=== PATIENT | male | born 1945 | race Caucasian/White ===

== ENCOUNTER 2017-11-03 09:26 | Emergency (ER) | payer MEDICARE, OTHER ==
[~2017-11-03] VITALS: Ht 182.9 cm; Wt 94.3 kg
[~2017-11-03 09:26] MED LIST: ALBU90OI61 INH; BUPR150ER; CITA20; HYDR1TAB94; LISI20 PO; LISI5; METO100ER; NAPR500EC; Norco 5-325 Ta1 EACH PO; OXYACE5T PO; Prednisone20 MG PO; TRIHYD253A; Tamiflu75 MG PO
[2017-11-03 10:21] LABS: BASOPHILS ABSOLUTE AUTO 0.07 K/mm3 (0.00-0.23); BASOPHILS PERCENT AUTO 1 % (0-2); EOSINOPHILS ABSOLUTE AUTO 0.14 K/mm3 (0.00-0.68); EOSINOPHILS PERCENT AUTO 2 % (0-6); Hematocrit 44.7 % (37.0-53.0); IMMATURE GRAN ABSOLUTE AUTO 0.13 K/mm3 (0.00-0.10); IMMATURE GRAN PERCENT AUTO 2 % (0-1); LYMPHOCYTES ABSOLUTE AUTO 2.51 K/mm3 (0.84-5.20); LYMPHOCYTES PERCENT AUTO 32 % (21-46); MONOCYTES ABSOLUTE AUTO 0.82 K/mm3 (0.16-1.47); MONOCYTES PERCENT AUTO 10 % (4-13); Mean Corpuscular HGB 30.5 pg (26.0-34.0); Mean Corpuscular HGB Conc 33.6 g/dL (31.5-36.5); Mean Corpuscular Volume 91 fL (80-100); Mean Platelet Volume 10.8 fL (9.1-12.4); NEUTROPHILS ABSOLUTE AUTO 4.29 K/mm3 (1.96-9.15); NEUTROPHILS PERCENT AUTO 54 % (41-73); Platelet Count 204 K/mm3 (150-400); RDW Coefficient Variation 12.7 % (11.7-14.2); RDW Standard Deviation 42.3 fL (35.1-46.3); Red Blood Cell Count 4.91 M/mm3 (4.30-5.90); White Blood Cell Count 7.96 K/mm3 (4.00-11.30)
[2017-11-03] MEDS ORDERED: POTCHL10ER PO (10:45)
[2017-11-03] MEDS ORDERED: FURO40 PO (10:46)
[2017-11-03] MEDS ORDERED: LISI20 PO (10:46)
[2017-11-03] MEDS ORDERED: CITA20 PO (10:47)
[2017-11-03] MEDS ORDERED: Percocet 5-3251 EACH PO (10:47)
[2017-11-03 10:48] LABS: Alanine Aminotransfer (ALT/SGP 19 U/L (12-78); Albumin, Blood 3.2 g/dL (3.4-5.0); Albumin/Globulin Ratio 0.8 (0.8-1.8); Alk Phos 121 U/L (50-136); Anion Gap 8 mmol/L (6-16); Aspartate Aminotrans (AST/SGOT 14 U/L (12-37); Bilirubin, Total 0.3 mg/dL (0.1-1.0); Blood Urea Nitrogen 21 mg/dL (8-24); Bun/Creatinine Ratio 17.1 (12.0-20.0); CO2, Blood 26 mmol/L (21-32); Calcium, Blood 8.5 mg/dL (8.5-10.1); Chloride, Blood 105 mmol/L (98-108); Creatinine, Blood 1.23 mg/dL (0.60-1.20); Globulin, Blood 4.2 g/dL (2.2-4.0); Glomerular Filtration Rate >60 (60-); Glucose, Blood 89 mg/dL (70-99); Potassium, Blood 4.1 mmol/L (3.5-5.5); Sodium, Blood 139 mmol/L (136-145); Total Protein, Blood 7.4 g/dL (6.4-8.2); Troponin I <0.015 ng/mL (0.000-0.040)
[2017-11-03] MEDS ORDERED: Bupropion Xl150 MG PO (10:49)
[2017-11-03] MEDS ORDERED: Norco 5-325 Ta1 EACH PO (12:45)
[2018-01-13] MEDS ORDERED: FENTANYL1 EAC1 TOP (10:26)
== END 2017-11-03 13:15 | disposition home or self-care (01) ==
LOC: ER 09:26
PROVIDERS: Internal Medicine
DX: R07.89 Other chest pain (principal); R91.8 Other nonspecific abnormal finding of lung field; Z79.891 Long term (current) use of opiate analgesic; I10 Essential (primary) hypertension; J44.9 Chronic obstructive pulmonary disease, unspecified; E78.5 Hyperlipidemia, unspecified; F17.200 Nicotine dependence, unspecified, uncomplicated
CPT/HCPCS: 36415; 71046; 71260; 80053; 83880; 84484; 85025; 85379; 93005; 93010; 99284; Q9967

== ENCOUNTER 2017-11-24 08:55 | Day surgery (SDC) | payer MEDICARE, OTHER ==
[~2017-11-24 08:55] MED LIST changes: +Bupropion Xl150 MG PO; +CITA20 PO; +FURO40 PO; +POTCHL10ER PO; +Percocet 5-3251 EACH PO
[2017-11-25] MEDS ORDERED: Hydrocodone-Ap1 EA23 (11:58)
[2017-11-25] MEDS ORDERED: HYDMOR2 PO (14:10)
[2017-12-07 14:32] LABS: Performing Lab SYMBIODX; Test Name TISSUE BLOCK
[2017-12-15 11:18] LABS: Result SEE PATHOTH RESULTS
[2018-01-13] MEDS ORDERED: FENTANYL1 EAC1 TOP (10:26)
== END 2017-11-24 22:54 | disposition home or self-care (01) ==
LOC: CT 08:55
PROVIDERS: Physician Assistant; Radiology Diagnostic Radiology
PROC: 0BBC3ZX Excision of Right Upper Lung Lobe, Percutaneous Approach, Diagnostic (ICD-10-PCS; principal; 2017-11-24 11:00)
DX: C34.11 Malignant neoplasm of upper lobe, right bronchus or lung (principal); F17.210 Nicotine dependence, cigarettes, uncomplicated
CPT/HCPCS: 32405; 71045; 77012; 88305; 88342; 88360

== ENCOUNTER 2017-11-25 11:34 | Emergency (ER) | payer MEDICARE, OTHER ==
[~2017-11-25] VITALS: Ht 177.8 cm; Wt 86.2 kg
[2017-11-25] MEDS ORDERED: Hydrocodone-Ap1 EA23 (11:58)
[2017-11-25 12:00] LABS: BASOPHILS ABSOLUTE AUTO 0.05 K/mm3 (0.00-0.23); BASOPHILS PERCENT AUTO 1 % (0-2); EOSINOPHILS ABSOLUTE AUTO 0.14 K/mm3 (0.00-0.68); EOSINOPHILS PERCENT AUTO 2 % (0-6); Hematocrit 41.5 % (37.0-53.0); Hemoglobin 13.8 g/dL (13.5-17.5); IMMATURE GRAN ABSOLUTE AUTO 0.05 K/mm3 (0.00-0.10); IMMATURE GRAN PERCENT AUTO 1 % (0-1); LYMPHOCYTES ABSOLUTE AUTO 1.98 K/mm3 (0.84-5.20); LYMPHOCYTES PERCENT AUTO 26 % (21-46); MONOCYTES ABSOLUTE AUTO 0.67 K/mm3 (0.16-1.47); MONOCYTES PERCENT AUTO 9 % (4-13); Mean Corpuscular HGB 30.1 pg (26.0-34.0); Mean Corpuscular HGB Conc 33.3 g/dL (31.5-36.5); Mean Corpuscular Volume 90 fL (80-100); Mean Platelet Volume 10.1 fL (9.1-12.4); NEUTROPHILS PERCENT AUTO 62 % (41-73); Platelet Count 247 K/mm3 (150-400); RDW Coefficient Variation 12.2 % (11.7-14.2); RDW Standard Deviation 40.4 fL (35.1-46.3); Red Blood Cell Count 4.59 M/mm3 (4.30-5.90); White Blood Cell Count 7.69 K/mm3 (4.00-11.30)
[2017-11-25 12:18] LABS: Alanine Aminotransfer (ALT/SGP 21 U/L (12-78); Albumin, Blood 2.9 g/dL (3.4-5.0); Albumin/Globulin Ratio 0.6 (0.8-1.8); Alk Phos 117 U/L (50-136); Anion Gap 7 mmol/L (6-16); Aspartate Aminotrans (AST/SGOT 18 U/L (12-37); Bilirubin, Total 0.6 mg/dL (0.1-1.0); Blood Urea Nitrogen 19 mg/dL (8-24); Bun/Creatinine Ratio 17.9 (12.0-20.0); CO2, Blood 27 mmol/L (21-32); Calcium, Blood 8.8 mg/dL (8.5-10.1); Chloride, Blood 102 mmol/L (98-108); Creatinine, Blood 1.06 mg/dL (0.60-1.20); Globulin, Blood 4.7 g/dL (2.2-4.0); Glomerular Filtration Rate >60 (60-); Glucose, Blood 131 mg/dL (70-99); Potassium, Blood 3.8 mmol/L (3.5-5.5); Sodium, Blood 136 mmol/L (136-145); Total Protein, Blood 7.6 g/dL (6.4-8.2)
[2017-11-25] MEDS ORDERED: HYDMOR2 PO (14:10)
[2018-01-13] MEDS ORDERED: FENTANYL1 EAC1 TOP (10:26)
== END 2017-11-25 14:39 | disposition home or self-care (01) ==
LOC: ER 11:34
PROVIDERS: Emergency Medicine
DX: R07.9 Chest pain, unspecified (principal); R06.02 Shortness of breath; F17.200 Nicotine dependence, unspecified, uncomplicated; I10 Essential (primary) hypertension; J44.9 Chronic obstructive pulmonary disease, unspecified; E78.5 Hyperlipidemia, unspecified; Z79.899 Other long term (current) drug therapy
CPT/HCPCS: 36415; 71046; 80053; 85025; 93005; 93010; 96374; 99283; J1170

== ENCOUNTER 2017-11-28 10:42 | Emergency (ER) | payer MEDICARE, OTHER ==
[~2017-11-28] VITALS: Ht 175.3 cm; Wt 92.1 kg
[~2017-11-28 10:42] MED LIST changes: +HYDMOR2 PO; +Hydrocodone-Ap1 EA23
[2017-11-28] MEDS ORDERED: Norco 10-325 T1 EACH PO (12:25)
[2018-01-13] MEDS ORDERED: FENTANYL1 EAC1 TOP (10:26)
== END 2017-11-28 13:40 | disposition home or self-care (01) ==
LOC: ER 10:42
DX: G89.4 Chronic pain syndrome (principal); C34.90 Malignant neoplasm of unspecified part of unspecified bronchus or lung; I10 Essential (primary) hypertension; J44.9 Chronic obstructive pulmonary disease, unspecified; E78.5 Hyperlipidemia, unspecified; Z79.899 Other long term (current) drug therapy; Z87.891 Personal history of nicotine dependence
CPT/HCPCS: 71046; 96372; 99284; J1170; J2550

== ENCOUNTER 2017-12-05 20:55 | Emergency (ER) | payer MEDICARE, OTHER ==
[~2017-12-05] VITALS: Ht 175.3 cm; Wt 89.8 kg
[~2017-12-05 20:55] MED LIST changes: +Norco 10-325 T1 EACH PO
[2017-12-05] MEDS ORDERED: CHOL10002 PO (21:44)
[2017-12-05] MEDS ORDERED: CYCL10 PO (21:46)
[2017-12-05] MEDS ORDERED: Cyclobenzaprine5 MG PO (22:08)
[2018-01-13] MEDS ORDERED: FENTANYL1 EAC1 TOP (10:26)
== END 2017-12-05 22:30 | disposition home or self-care (01) ==
LOC: ER 20:55
DX: G89.29 Other chronic pain (principal); M25.512 Pain in left shoulder; Z76.0 Encounter for issue of repeat prescription; I10 Essential (primary) hypertension; J44.9 Chronic obstructive pulmonary disease, unspecified; E78.5 Hyperlipidemia, unspecified; Z87.891 Personal history of nicotine dependence; Z79.899 Other long term (current) drug therapy
CPT/HCPCS: 71046; 76870; 96372; 99284; J1100; J1170; J1885

== ENCOUNTER 2017-12-26 13:00 | Emergency (ER) | payer MEDICARE, OTHER ==
[~2017-12-26] VITALS: Ht 182.9 cm; Wt 81.7 kg
[~2017-12-26 13:00] MED LIST changes: +CHOL10002 PO; +CYCL10 PO; +Cyclobenzaprine5 MG PO
[2017-12-26 14:33] LABS: BASOPHILS ABSOLUTE AUTO 0.04 K/mm3 (0.00-0.23); BASOPHILS PERCENT AUTO 0 % (0-2); EOSINOPHILS PERCENT AUTO 0 % (0-6); Hematocrit 43.1 % (37.0-53.0); Hemoglobin 14.9 g/dL (13.5-17.5); IMMATURE GRAN ABSOLUTE AUTO 0.56 K/mm3 (0.00-0.10); IMMATURE GRAN PERCENT AUTO 5 % (0-1); LYMPHOCYTES ABSOLUTE AUTO 0.36 K/mm3 (0.84-5.20); LYMPHOCYTES PERCENT AUTO 3 % (21-46); MONOCYTES ABSOLUTE AUTO 0.84 K/mm3 (0.16-1.47); MONOCYTES PERCENT AUTO 7 % (4-13); Mean Corpuscular HGB 30.5 pg (26.0-34.0); Mean Corpuscular HGB Conc 34.6 g/dL (31.5-36.5); Mean Corpuscular Volume 88 fL (80-100); Mean Platelet Volume 9.9 fL (9.1-12.4); NEUTROPHILS ABSOLUTE AUTO 9.51 K/mm3 (1.96-9.15); NEUTROPHILS PERCENT AUTO 84 % (41-73); Platelet Count 145 K/mm3 (150-400); RDW Coefficient Variation 13.7 % (11.7-14.2); RDW Standard Deviation 43.8 fL (35.1-46.3); Red Blood Cell Count 4.88 M/mm3 (4.30-5.90); White Blood Cell Count 11.31 K/mm3 (4.00-11.30)
[2017-12-26 14:38] LABS: Alanine Aminotransfer (ALT/SGP 142 U/L (12-78); Albumin, Blood 2.8 g/dL (3.4-5.0); Albumin/Globulin Ratio 0.7 (0.8-1.8); Alk Phos 114 U/L (50-136); Anion Gap 10 mmol/L (6-16); Aspartate Aminotrans (AST/SGOT 36 U/L (12-37); Blood Urea Nitrogen 38 mg/dL (8-24); Bun/Creatinine Ratio 43.1 (12.0-20.0); CO2, Blood 22 mmol/L (21-32); Calcium, Blood 8.3 mg/dL (8.5-10.1); Chloride, Blood 102 mmol/L (98-108); Creatinine, Blood 0.88 mg/dL (0.60-1.20); Globulin, Blood 4.2 g/dL (2.2-4.0); Glomerular Filtration Rate >60 (60-); Glucose, Blood 116 mg/dL (70-99); Potassium, Blood 4.4 mmol/L (3.5-5.5); Sodium, Blood 134 mmol/L (136-145)
== END 2017-12-26 16:07 | disposition left against medical advice (07) ==
LOC: ER 13:00
PROVIDERS: Emergency Medicine
DX: Z53.21 Procedure and treatment not carried out due to patient leaving prior to being seen by health care provider (principal)
CPT/HCPCS: 36415; 80053; 85025; 99283

== ENCOUNTER 2018-01-13 00:19 | Day surgery (SDC) | payer MEDICARE, OTHER ==
[2018-01-13] MEDS ORDERED: ALBU90OI61 INH (10:26)
[2018-01-13] MEDS ORDERED: FENT50TP TOP (10:26)
[2018-01-13] MEDS ORDERED: DEXA4 PO (10:27)
[2018-01-13] MEDS ORDERED: Dazidox10 MG PO (10:29)
[2018-01-13] MEDS ORDERED: LORA1 PO (10:30)
== END 2018-01-13 11:33 | disposition home or self-care (01) ==
LOC: ATC 00:19
DX: C34.2 Malignant neoplasm of middle lobe, bronchus or lung (principal); C77.1 Secondary and unspecified malignant neoplasm of intrathoracic lymph nodes; C79.51 Secondary malignant neoplasm of bone; G89.3 Neoplasm related pain (acute) (chronic); D70.1 Agranulocytosis secondary to cancer chemotherapy; D69.59 Other secondary thrombocytopenia; Z87.891 Personal history of nicotine dependence; J45.909 Unspecified asthma, uncomplicated
CPT/HCPCS: 36430; 86900; 86901; J7030; P9035

== ENCOUNTER 2018-01-27 12:41 | Inpatient (IN) | payer MEDICARE, OTHER ==
[~2018-01-27] VITALS: Ht 177.8 cm; Wt 78.3 kg
[~2018-01-27 12:41] MED LIST changes: +DEXA4 PO; +Dazidox10 MG PO; +FENTANYL1 EAC1 TOP; +LORA1 PO
[2018-01-27 13:33] LABS: Hematocrit 24.7 % (37.0-53.0); Hemoglobin 8.6 g/dL (13.5-17.5); Mean Corpuscular HGB 30.4 pg (26.0-34.0); Mean Corpuscular HGB Conc 34.8 g/dL (31.5-36.5); Mean Corpuscular Volume 87 fL (80-100); Mean Platelet Volume 9.9 fL (9.1-12.4); RDW Coefficient Variation 13.5 % (11.7-14.2); RDW Standard Deviation 41.5 fL (35.1-46.3); Red Blood Cell Count 2.83 M/mm3 (4.30-5.90)
[2018-01-27 13:48] LABS: Alanine Aminotransfer (ALT/SGP 92 U/L (12-78); Albumin, Blood 2.4 g/dL (3.4-5.0); Albumin/Globulin Ratio 0.6 (0.8-1.8); Alk Phos 99 U/L (50-136); Anion Gap 8 mmol/L (6-16); Aspartate Aminotrans (AST/SGOT 29 U/L (12-37); Bilirubin, Total 1.1 mg/dL (0.1-1.0); Blood Urea Nitrogen 33 mg/dL (8-24); Bun/Creatinine Ratio 45.4 (12.0-20.0); CO2, Blood 25 mmol/L (21-32); Calcium, Blood 7.8 mg/dL (8.5-10.1); Chloride, Blood 103 mmol/L (98-108); Creatinine, Blood 0.73 mg/dL (0.60-1.20); Globulin, Blood 3.8 g/dL (2.2-4.0); Glomerular Filtration Rate >60 (60-); Glucose, Blood 114 mg/dL (70-99); Magnesium, Blood 2.2 mg/dL (1.6-2.4); Potassium, Blood 3.7 mmol/L (3.5-5.5); Sodium, Blood 136 mmol/L (136-145); Total Protein, Blood 6.2 g/dL (6.4-8.2); Troponin I <0.015 ng/mL (0.000-0.040)
[2018-01-27 13:52] LABS: Thyroid Stimulating Hormone 0.863 uIU/mL (0.360-4.800)
[2018-01-27 13:56] LABS: Base Excess Venous 0.7 mmol/L; Bicarbonate Venous 24.9 mmol/L (24.0-30.0); PCO2 Venous 40.3 mmHg (38-42); PO2 Venous 55.8 mmHg (38-42); pH Blood Venous 7.41 (7.34-7.37)
[2018-01-27 14:12] LABS: Platelet Count 50 K/mm3 (150-400); White Blood Cell Count 0.46 K/mm3 (4.00-11.30)
[2018-01-27 14:45] LABS: BASOPHILS PERCENT MAN 0 % (0-2); EOSINOPHILS PERCENT MAN 0 % (0-6); LYMPHOCYTES ABSOLUTE MAN 0.33 K/mm3 (0.84-5.20); LYMPHOCYTES PERCENT MAN 72 % (21-46); MONOCYTES ABSOLUTE MAN 0.01 K/mm3 (0.16-1.47); MONOCYTES PERCENT MAN 3 % (4-13); NEUTROPHILS ABSOLUTE MAN 0.11 K/mm3 (1.96-9.15); SEG NEUTROPHILS PERCENT MAN 25 % (41-73); TOTAL CELLS COUNTED 100
[2018-01-27 16:40] LABS: International Normalized Ratio 1.03; Prothrombin Time Results 10.7 Sec (9.7-11.5)
[2018-01-28 06:34] LABS: Hematocrit 18.5 % (37.0-53.0); Hemoglobin 6.4 g/dL (13.5-17.5); Mean Corpuscular HGB 30.5 pg (26.0-34.0); Mean Corpuscular HGB Conc 34.6 g/dL (31.5-36.5); Mean Corpuscular Volume 88 fL (80-100); Mean Platelet Volume 10.1 fL (9.1-12.4); NRBC ABSOLUTE 0.02 K/mm3 (0.00-0.02); NRBC Auto 5.6 /100 WBC (0.0-0.2); RDW Coefficient Variation 13.5 % (11.7-14.2)
[2018-01-28 06:46] LABS: International Normalized Ratio 1.09; Prothrombin Time Results 11.4 Sec (9.7-11.5)
[2018-01-28 06:52] LABS: BASOPHILS PERCENT AUTO 0 % (0-2); EOSINOPHILS PERCENT AUTO 0 % (0-6); IMMATURE GRAN ABSOLUTE AUTO 0.02 K/mm3 (0.00-0.10); IMMATURE GRAN PERCENT AUTO 6 % (0-1); LYMPHOCYTES ABSOLUTE AUTO 0.12 K/mm3 (0.84-5.20); LYMPHOCYTES PERCENT AUTO 33 % (21-46); MONOCYTES ABSOLUTE AUTO 0.06 K/mm3 (0.16-1.47); MONOCYTES PERCENT AUTO 17 % (4-13); NEUTROPHILS ABSOLUTE AUTO 0.16 K/mm3 (1.96-9.15); NEUTROPHILS PERCENT AUTO 44 % (41-73); Platelet Count 40 K/mm3 (150-400)
[2018-01-28 06:53] LABS: Alanine Aminotransfer (ALT/SGP 91 U/L (12-78); Albumin, Blood 1.9 g/dL (3.4-5.0); Albumin/Globulin Ratio 0.6 (0.8-1.8); Alk Phos 87 U/L (50-136); Anion Gap 7 mmol/L (6-16); Aspartate Aminotrans (AST/SGOT 26 U/L (12-37); Bilirubin, Total 0.5 mg/dL (0.1-1.0); Blood Urea Nitrogen 24 mg/dL (8-24); CO2, Blood 22 mmol/L (21-32); Calcium, Blood 6.8 mg/dL (8.5-10.1); Chloride, Blood 110 mmol/L (98-108); Creatinine, Blood 0.63 mg/dL (0.60-1.20); Globulin, Blood 3.4 g/dL (2.2-4.0); Glomerular Filtration Rate >60 (60-); Glucose, Blood 112 mg/dL (70-99); Potassium, Blood 3.8 mmol/L (3.5-5.5); Sodium, Blood 139 mmol/L (136-145); Total Protein, Blood 5.3 g/dL (6.4-8.2)
[2018-01-28 06:54] LABS: White Blood Cell Count 0.36 K/mm3 (4.00-11.30)
[2018-01-29 10:04] LABS: Hematocrit 24.2 % (37.0-53.0); Hemoglobin 8.7 g/dL (13.5-17.5); Mean Corpuscular HGB 30.9 pg (26.0-34.0); Mean Corpuscular Volume 86 fL (80-100); Mean Platelet Volume 9.8 fL (9.1-12.4); RDW Coefficient Variation 13.5 % (11.7-14.2); RDW Standard Deviation 41.5 fL (35.1-46.3); Red Blood Cell Count 2.82 M/mm3 (4.30-5.90)
[2018-01-29 10:18] LABS: Alanine Aminotransfer (ALT/SGP 78 U/L (12-78); Albumin, Blood 2.2 g/dL (3.4-5.0); Albumin/Globulin Ratio 0.7 (0.8-1.8); Alk Phos 86 U/L (50-136); Anion Gap 9 mmol/L (6-16); Aspartate Aminotrans (AST/SGOT 27 U/L (12-37); Bilirubin, Total 0.6 mg/dL (0.1-1.0); Blood Urea Nitrogen 16 mg/dL (8-24); Bun/Creatinine Ratio 25.3 (12.0-20.0); CO2, Blood 24 mmol/L (21-32); Calcium, Blood 7.2 mg/dL (8.5-10.1); Chloride, Blood 108 mmol/L (98-108); Creatinine, Blood 0.63 mg/dL (0.60-1.20); Globulin, Blood 3.3 g/dL (2.2-4.0); Glomerular Filtration Rate >60 (60-); Glucose, Blood 100 mg/dL (70-99); Potassium, Blood 3.4 mmol/L (3.5-5.5); Sodium, Blood 141 mmol/L (136-145); Total Protein, Blood 5.5 g/dL (6.4-8.2)
[2018-01-29 10:20] LABS: Vancomycin, Trough 12.5 ug/mL (5.0-10.0)
[2018-01-29 10:23] LABS: BASOPHILS PERCENT AUTO 0 % (0-2); EOSINOPHILS PERCENT AUTO 0 % (0-6); IMMATURE GRAN ABSOLUTE AUTO 0.17 K/mm3 (0.00-0.10); IMMATURE GRAN PERCENT AUTO 17 % (0-1); LYMPHOCYTES ABSOLUTE AUTO 0.25 K/mm3 (0.84-5.20); LYMPHOCYTES PERCENT AUTO 25 % (21-46); MONOCYTES ABSOLUTE AUTO 0.11 K/mm3 (0.16-1.47); MONOCYTES PERCENT AUTO 11 % (4-13); NEUTROPHILS ABSOLUTE AUTO 0.46 K/mm3 (1.96-9.15); NEUTROPHILS PERCENT AUTO 46 % (41-73)
[2018-01-29 10:24] LABS: White Blood Cell Count 0.99 K/mm3 (4.00-11.30)
[2018-01-29 10:25] LABS: Platelet Count 24 K/mm3 (150-400)
[2018-01-29 10:28] LABS: BAND PERCENT MAN 10 % (0-8); BASOPHILS PERCENT MAN 0 % (0-2); EOSINOPHILS PERCENT MAN 0 % (0-6); LYMPHOCYTES ABSOLUTE MAN 0.09 K/mm3 (0.84-5.20); LYMPHOCYTES PERCENT MAN 10 % (21-46); MONOCYTES ABSOLUTE MAN 0.09 K/mm3 (0.16-1.47); MONOCYTES PERCENT MAN 10 % (4-13); NEUTROPHILS ABSOLUTE MAN 0.79 K/mm3 (1.96-9.15); SEG NEUTROPHILS PERCENT MAN 70 % (41-73); TOTAL CELLS COUNTED 10
[2018-01-30 04:12] LABS: BASOPHILS ABSOLUTE AUTO 0.01 K/mm3 (0.00-0.23); BASOPHILS PERCENT AUTO 0 % (0-2); Hematocrit 25.5 % (37.0-53.0); Hemoglobin 9.1 g/dL (13.5-17.5); LYMPHOCYTES ABSOLUTE AUTO 0.23 K/mm3 (0.84-5.20); LYMPHOCYTES PERCENT AUTO 9 % (21-46); MONOCYTES ABSOLUTE AUTO 0.35 K/mm3 (0.16-1.47); MONOCYTES PERCENT AUTO 14 % (4-13); Mean Corpuscular HGB 30.5 pg (26.0-34.0); Mean Corpuscular HGB Conc 35.7 g/dL (31.5-36.5); Mean Corpuscular Volume 86 fL (80-100); Mean Platelet Volume 11.4 fL (9.1-12.4); RDW Coefficient Variation 13.5 % (11.7-14.2); RDW Standard Deviation 41.1 fL (35.1-46.3); Red Blood Cell Count 2.98 M/mm3 (4.30-5.90)
[2018-01-30 04:20] LABS: EOSINOPHILS PERCENT AUTO 0 % (0-6); IMMATURE GRAN ABSOLUTE AUTO 0.35 K/mm3 (0.00-0.10); IMMATURE GRAN PERCENT AUTO 14 % (0-1); NEUTROPHILS ABSOLUTE AUTO 1.56 K/mm3 (1.96-9.15); NEUTROPHILS PERCENT AUTO 62 % (41-73)
[2018-01-30 04:21] LABS: Platelet Count 16 K/mm3 (150-400)
[2018-01-30 04:43] LABS: BAND PERCENT MAN 8 % (0-8); BASOPHILS PERCENT MAN 0 % (0-2); EOSINOPHILS PERCENT MAN 0 % (0-6); LYMPHOCYTES ABSOLUTE MAN 0.27 K/mm3 (0.84-5.20); LYMPHOCYTES PERCENT MAN 11 % (21-46); METAMYELOCYTE PERCENT MAN 4 % (0-0); MONOCYTES ABSOLUTE MAN 0.27 K/mm3 (0.16-1.47); MONOCYTES PERCENT MAN 11 % (4-13); MYELOCYTE ABSOLUTE MAN 0.02 K/mm3 (0.00-0.00); MYELOCYTE PERCENT MAN 1 % (0-0); NEUTROPHILS ABSOLUTE MAN 1.77 K/mm3 (1.96-9.15); PROMYELOCYTE ABSOLUTE MAN 0.05 K/mm3 (0.00-0.00); PROMYELOCYTE PERCENT MAN 2 % (0-0); SEG NEUTROPHILS PERCENT MAN 63 % (41-73); TOTAL CELLS COUNTED 100
[2018-01-31 06:05] LABS: Hematocrit 24.5 % (37.0-53.0); Hemoglobin 8.7 g/dL (13.5-17.5); Mean Corpuscular HGB Conc 35.5 g/dL (31.5-36.5); Mean Corpuscular Volume 87 fL (80-100); Mean Platelet Volume 10.7 fL (9.1-12.4); NRBC ABSOLUTE 0.02 K/mm3 (0.00-0.02); NRBC Auto 0.4 /100 WBC (0.0-0.2); RDW Coefficient Variation 13.9 % (11.7-14.2); Red Blood Cell Count 2.81 M/mm3 (4.30-5.90); White Blood Cell Count 5.08 K/mm3 (4.00-11.30)
[2018-01-31 06:10] LABS: Platelet Count 8 K/mm3 (150-400)
[2018-01-31 06:38] LABS: Blood Urea Nitrogen 14 mg/dL (8-24); Bun/Creatinine Ratio 22.9 (12.0-20.0); Chloride, Blood 110 mmol/L (98-108); Creatinine, Blood 0.61 mg/dL (0.60-1.20); Glomerular Filtration Rate >60 (60-); Glucose, Blood 127 mg/dL (70-99); Potassium, Blood 3.6 mmol/L (3.5-5.5); Sodium, Blood 141 mmol/L (136-145)
[2018-01-31 06:45] LABS: Anion Gap 5 mmol/L (6-16); BAND PERCENT MAN 5 % (0-8); BASOPHILS ABSOLUTE MAN 0.05 K/mm3 (0.00-0.23); BASOPHILS PERCENT MAN 1 % (0-2); CO2, Blood 26 mmol/L (21-32); EOSINOPHILS PERCENT MAN 0 % (0-6); LYMPHOCYTES ABSOLUTE MAN 0.45 K/mm3 (0.84-5.20); LYMPHOCYTES PERCENT MAN 9 % (21-46); MONOCYTES PERCENT MAN 10 % (4-13); MYELOCYTE PERCENT MAN 2 % (0-0); NEUTROPHILS ABSOLUTE MAN 3.96 K/mm3 (1.96-9.15); SEG NEUTROPHILS PERCENT MAN 73 % (41-73); TOTAL CELLS COUNTED 100
[2018-01-31 08:45] LABS: Vancomycin, Trough 2.6 ug/mL (5.0-10.0)
[2018-02-01 05:50] LABS: Hematocrit 23.8 % (37.0-53.0); Hemoglobin 8.3 g/dL (13.5-17.5); Mean Corpuscular HGB 30.5 pg (26.0-34.0); Mean Corpuscular HGB Conc 34.9 g/dL (31.5-36.5); Mean Corpuscular Volume 88 fL (80-100); Mean Platelet Volume 10.7 fL (9.1-12.4); NRBC ABSOLUTE 0.07 K/mm3 (0.00-0.02); RDW Coefficient Variation 14.6 % (11.7-14.2); RDW Standard Deviation 45.4 fL (35.1-46.3); Red Blood Cell Count 2.72 M/mm3 (4.30-5.90); White Blood Cell Count 7.11 K/mm3 (4.00-11.30)
[2018-02-01 05:58] LABS: Platelet Count 11 K/mm3 (150-400)
[2018-02-01 06:10] LABS: BAND PERCENT MAN 6 % (0-8); BASOPHILS PERCENT MAN 0 % (0-2); EOSINOPHILS PERCENT MAN 0 % (0-6); LYMPHOCYTES % ATYPICAL MANUAL 1 % (0-0); LYMPHOCYTES ABSOLUTE MAN 0.78 K/mm3 (0.84-5.20); LYMPHOCYTES PERCENT MAN 10 % (21-46); MONOCYTES ABSOLUTE MAN 0.35 K/mm3 (0.16-1.47); MONOCYTES PERCENT MAN 5 % (4-13); MYELOCYTE ABSOLUTE MAN 0.28 K/mm3 (0.00-0.00); MYELOCYTE PERCENT MAN 4 % (0-0); NEUTROPHILS ABSOLUTE MAN 5.68 K/mm3 (1.96-9.15); SEG NEUTROPHILS PERCENT MAN 74 % (41-73); TOTAL CELLS COUNTED 100
[2018-02-01 06:11] LABS: Alanine Aminotransfer (ALT/SGP 68 U/L (12-78); Albumin, Blood 1.9 g/dL (3.4-5.0); Albumin/Globulin Ratio 0.6 (0.8-1.8); Alk Phos 92 U/L (50-136); Anion Gap 9 mmol/L (6-16); Aspartate Aminotrans (AST/SGOT 30 U/L (12-37); Bilirubin, Total 0.2 mg/dL (0.1-1.0); Blood Urea Nitrogen 13 mg/dL (8-24); Bun/Creatinine Ratio 21.3 (12.0-20.0); CO2, Blood 25 mmol/L (21-32); Calcium, Blood 7.2 mg/dL (8.5-10.1); Chloride, Blood 110 mmol/L (98-108); Creatinine, Blood 0.61 mg/dL (0.60-1.20); Globulin, Blood 3.3 g/dL (2.2-4.0); Glomerular Filtration Rate >60 (60-); Glucose, Blood 142 mg/dL (70-99); Potassium, Blood 3.2 mmol/L (3.5-5.5); Sodium, Blood 144 mmol/L (136-145); Total Protein, Blood 5.2 g/dL (6.4-8.2)
[2018-02-02 09:03] LABS: Hematocrit 25.3 % (37.0-53.0); Hemoglobin 8.7 g/dL (13.5-17.5); Mean Corpuscular HGB 30.2 pg (26.0-34.0); Mean Corpuscular HGB Conc 34.4 g/dL (31.5-36.5); Mean Corpuscular Volume 88 fL (80-100); Mean Platelet Volume 13.4 fL (9.1-12.4); NRBC ABSOLUTE 0.13 K/mm3 (0.00-0.02); RDW Coefficient Variation 14.6 % (11.7-14.2); RDW Standard Deviation 46.3 fL (35.1-46.3); Red Blood Cell Count 2.88 M/mm3 (4.30-5.90); White Blood Cell Count 13.16 K/mm3 (4.00-11.30)
[2018-02-02 09:12] LABS: Platelet Count 12 K/mm3 (150-400)
[2018-02-02 09:40] LABS: BAND PERCENT MAN 10 % (0-8); BASOPHILS PERCENT MAN 0 % (0-2); EOSINOPHILS PERCENT MAN 0 % (0-6); LYMPHOCYTES ABSOLUTE MAN 1.05 K/mm3 (0.84-5.20); LYMPHOCYTES PERCENT MAN 8 % (21-46); METAMYELOCYTE ABSOLUTE MAN 0.26 K/mm3 (0.00-0.00); METAMYELOCYTE PERCENT MAN 2 % (0-0); MONOCYTES ABSOLUTE MAN 0.39 K/mm3 (0.16-1.47); MONOCYTES PERCENT MAN 3 % (4-13); MYELOCYTE ABSOLUTE MAN 1.18 K/mm3 (0.00-0.00); MYELOCYTE PERCENT MAN 9 % (0-0); PROMYELOCYTE ABSOLUTE MAN 0.26 K/mm3 (0.00-0.00); PROMYELOCYTE PERCENT MAN 2 % (0-0); SEG NEUTROPHILS PERCENT MAN 66 % (41-73); TOTAL CELLS COUNTED 100
[2018-02-03 06:22] LABS: Hematocrit 23.7 % (37.0-53.0); Hemoglobin 8.1 g/dL (13.5-17.5); Mean Corpuscular HGB 30.5 pg (26.0-34.0); Mean Corpuscular HGB Conc 34.2 g/dL (31.5-36.5); Mean Corpuscular Volume 89 fL (80-100); Mean Platelet Volume 11.2 fL (9.1-12.4); NRBC ABSOLUTE 0.12 K/mm3 (0.00-0.02); RDW Coefficient Variation 15.3 % (11.7-14.2); RDW Standard Deviation 48.9 fL (35.1-46.3); Red Blood Cell Count 2.66 M/mm3 (4.30-5.90); White Blood Cell Count 12.23 K/mm3 (4.00-11.30)
[2018-02-03 06:27] LABS: Platelet Count 15 K/mm3 (150-400)
[2018-02-03 06:55] LABS: BAND PERCENT MAN 5 % (0-8); BASOPHILS PERCENT MAN 0 % (0-2); EOSINOPHILS PERCENT MAN 0 % (0-6); LYMPHOCYTES ABSOLUTE MAN 0.85 K/mm3 (0.84-5.20); LYMPHOCYTES PERCENT MAN 7 % (21-46); METAMYELOCYTE PERCENT MAN 9 % (0-0); MONOCYTES ABSOLUTE MAN 0.24 K/mm3 (0.16-1.47); MONOCYTES PERCENT MAN 2 % (4-13); MYELOCYTE ABSOLUTE MAN 0.36 K/mm3 (0.00-0.00); MYELOCYTE PERCENT MAN 3 % (0-0); NEUTROPHILS ABSOLUTE MAN 9.29 K/mm3 (1.96-9.15); PROMYELOCYTE ABSOLUTE MAN 0.36 K/mm3 (0.00-0.00); PROMYELOCYTE PERCENT MAN 3 % (0-0); SEG NEUTROPHILS PERCENT MAN 71 % (41-73); TOTAL CELLS COUNTED 100
== END 2018-02-03 14:55 | DRG 808 ==
LOC: ER 12:41 → MEDS 12:42 → PCU 01-28 09:45 → MEDS 01-28 09:46
PROVIDERS: Emergency Medicine; Family Medicine; Internal Medicine; Student in an Organized Health Care Education/Training Program
PROC: 02HV33Z Insertion of Infusion Device into Superior Vena Cava, Percutaneous Approach (ICD-10-PCS; principal; 2018-01-30)
PROC: 30233N1 Transfusion of Nonautologous Red Blood Cells into Peripheral Vein, Percutaneous Approach (ICD-10-PCS; 2018-01-30)
DX: D61.818 Other pancytopenia (principal); E43 Unspecified severe protein-calorie malnutrition; C77.5 Secondary and unspecified malignant neoplasm of intrapelvic lymph nodes; C34.91 Malignant neoplasm of unspecified part of right bronchus or lung; D61.810 Antineoplastic chemotherapy induced pancytopenia; J44.9 Chronic obstructive pulmonary disease, unspecified; D63.0 Anemia in neoplastic disease; D70.8 Other neutropenia; I10 Essential (primary) hypertension; R62.7 Adult failure to thrive; D69.6 Thrombocytopenia, unspecified; E86.0 Dehydration; Z66 Do not resuscitate; R79.89 Other specified abnormal findings of blood chemistry; E78.5 Hyperlipidemia, unspecified
CPT/HCPCS: 36415; 36430; 36569; 71045; 71260; 74177; 80048; 80053; 80202; 82803; 83605; 83735; 84443; 84484; 85007; 85025; 85027; 85610; 86850; 86900; 86901; 86923; 87040; 93005; 93010; 94640; 94760; 96361; 96374; 96375; 97110; 97116; 97162; 97166; 97530; 97535; 99285; C1751; G8978; G8979; G8987; G8988; J0696; J1956; J2405; J3010; J3370; J7030; P9016; P9035; Q9967